=== PATIENT | female | born 1970 | race Caucasian/White ===

== ENCOUNTER → 2016-05-19 | Emergency (ER) | payer SELFPAY ==
[~2016-05-19] VITALS: Ht 147.3 cm; Wt 87.0 kg
[~2016-05-19] MED LIST: BENA5TAB2 PO; CYCL-319 PO; HYDR-906 PO; IBUP-1542 PO; METF500T4 PO
[2016-05-19 19:52] VITALS: Ht 147.3 cm; Wt 87.0 kg
--- NOTE | 2016-05-19 21:09 | ERD ---
ER Documentation Chief Complaint Date/Time DATE: 05/19/16 TIME: 21:08 Chief Complaint Bilateral flank pain x 3 days HPI 45-year-old female presents here in emergency department for complaints of bilateral flank pain for 3 days. Patient described the pain as sharp pain, 6/10 scale, is worse upon movement. Patient denies any nausea or vomiting. Patient denies any fever or chills. Patient denies hematuria or dysuria. Patient did not take any medications to help with symptoms. Patient denies any numbness or tingling in lower extremities. Patient denies any abdominal pain. ROS All systems reviewed and are negative except as per history of present illness. Medications Home Meds Reported Medications Metformin* (Glucophage*) Unknown Strength Tab, PO BID, #20 TAB 05/19/16 Benazepril Hcl* (Benazepril Hcl*) Unknown Strength Tablet, PO BID, #60 TAB 05/19/16 Allergies Allergies: Coded Allergies: No Known Allergy (Unverified , 05/19/16) PMhx/Soc History of Surgery: Yes (CHOLECYSTECTOMY) Anesthesia Reaction: No Hx Neurological Disorder: No Hx Respiratory Disorders: No Hx Cardiac Disorders: Yes (HTN) Hx Psychiatric Problems: No Hx Miscellaneous Medical Probl: Yes (DIABETES, RENAL INSUFFICIENCY) Hx Alcohol Use: No Hx Substance Use: No Hx Tobacco Use: No Smoking Status: Never smoker FmHx Family History: No coronary disease, No diabetes, No other Physical Exam Vitals Vital Signs Date Time Temp Pulse Resp B/P Pulse Ox O2 Delivery O2 Flow Rate FiO2 05/19/16 19:52 98.4 77 20 174/81 99 Physical Exam GENERAL: The patient is well developed and appropriate for usual state of health, in no apparent distress. CHEST: Clear to auscultation bilaterally. There are no rales, wheezes or rhonchi. HEART: Regular rate and rhythm. No murmurs, clicks, rubs or gallops. No S3 or S4. ABDOMEN: Soft, nontender and nondistended. Good bowel sounds. No rebound or guarding. No gross peritonitis. No gross organomegaly or masses. No Tomas sign or McBurney point tenderness. BACK: No midline or flank tenderness. Muscle spasms noted in the paraspinal aspect of the lumbar spine. EXTREMITIES: Equal pulses bilaterally. There is no peripheral clubbing, cyanosis or edema. No focal swelling or erythema. Full range of motion. Grossly neurovascularly intact. NEURO: Alert and oriented. Cranial nerves 2-12 intact. Motor strength in all 4 extremities with 5/5 strength. Sensation grossly intact. Normal speech and gait. SKIN: There is no apparent rash or petechia. The skin is warm and dry. HEMATOLOGIC AND LYMPHATIC: There is no evidence of excessive bruising or lymphedema. No gross cervical, axillary, or inguinal lymphadenopathy. Result Diagram: 05/19/16 2100 05/19/16 2100 Results 24 hrs Laboratory Tests Test 05/19/16 21:00 Alanine Aminotransferase (ALT/SGPT) 33IU/L Albumin 4.4g/dl Albumin/Globulin Ratio 1.37 Alkaline Phosphatase 64IU/L Anion Gap 17 Aspartate Amino Transf (AST/SGOT) 25IU/L Basophils # 0.010^3/ul Basophils % 0.3% Blood Urea Nitrogen 16mg/dl Calcium Level 9.4mg/dl Carbon Dioxide Level 30mmol/L Chloride Level 100mmol/L Creatinine 0.57mg/dl Direct Bilirubin 0.00mg/dl Eosinophils # 0.110^3/ul Eosinophils % 1.1% Globulin 3.20g/dl Glucose Level 208mg/dl Hematocrit 35.4% Hemoglobin 11.9g/dl Indirect Bilirubin 0.0mg/dl Lipase 64U/L Lymphocytes # 2.210^3/ul Lymphocytes % 21.7% Mean Corpuscular Hemoglobin 29.4pg Mean Corpuscular Hemoglobin Concent 33.6g/dl Mean Corpuscular Volume 87.4fl Mean Platelet Volume 10.6fl Monocytes # 0.510^3/ul Monocytes % 4.8% Neutrophils # 7.310^3/ul Neutrophils % 71.7% Nucleated Red Blood Cells # 0.010^3/ul Nucleated Red Blood Cells % 0.0/100WBC Platelet Count 16191^3/UL Potassium Level 3.5mmol/L Red Blood Count 4.0510^6/ul Red Cell Distribution Width 13.2% Sodium Level 143mmol/L Total Bilirubin 0.0mg/dl Total Protein 7.6g/dl Urine Bacteria FEW Urine Bilirubin NEGATIVE Urine Clarity CLEAR Urine Color LT. YELLOW Urine Epithelial Cells FEW Urine Glucose NEGATIVE% Urine Hemoglobin 3+ Urine Ketones NEGATIVE Urine Leukocyte Esterase NEGATIVE Urine Microscopic RBC 10-25/HPF Urine Microscopic WBC 0-2/HPF Urine Nitrite NEGATIVE Urine Specific [place] >=1.030 Urine Total Protein NEGATIVE Urine Urobilinogen 0.2 E.U./dL Urine pH 6.0 White Blood Count 10.210^3/ul PROCEDURE: CT Abdomen and pelvis without contrast. CLINICAL INDICATION: Abdominal pain. TECHNIQUE: CT scan of the abdomen and pelvis was performed on a multi- detector high-resolution CT scanner. Contiguous axial images were obtained from the lung bases to the ischial tuberosities without intravenous contrast. Coronal and sagittal reformatted images were also obtained. Images were reviewed on the PACS workstation. One or more of the following dose reduction techniques were used: - Automated exposure control. - Adjustment of the mA and/or kV according to patient size. - Use of iterative reconstruction technique. Exam CTD/vol = 15.79 mGy. Total exam DLP = 891.63 mGy-cm. COMPARISON: None. FINDINGS: Evaluation of the lung bases demonstrates minimal bibasilar atelectasis. There is a calcified granuloma within the left lower lobe. Abdomen: The liver is normal in size and diffusely low in attenuation consistent with fatty infiltration. There is no focal mass or dilatation of the biliary tree. The patient is status post cholecystectomy. The spleen, pancreas and bilateral adrenal glands are within normal limits. Bilateral kidneys are normal in size with no contour deforming mass identified. There is no radiopaque renal or ureteral calculus identified. There is no hydronephrosis or hydroureter. There is no retroperitoneal adenopathy. The abdominal aorta is of normal caliber. There is no abnormal bowel wall thickening or distension. There is no bowel obstruction or free air. A normal appendix is identified. There is no diverticulosis or diverticulitis. There is no ascites. Pelvis: The bladder is unremarkable. The uterus is unremarkable. There is a cystic structure within the left adnexa measuring 3.6 x 2.8 cm. There is no significant pelvic adenopathy or free fluid. Evaluation of the osseous structures demonstrates no suspicious lytic or blastic lesion. IMPRESSION: Fatty infiltration of the liver. Status post cholecystectomy. Left adnexal 3.6 cm cyst. Otherwise no acute abnormality identified within the abdomen and pelvis. .Cabrera Lozano, MD, MD Date Time Electronically viewed and signed by .Cabrera Lozano MD, MD on 05/20/2016 00:36 .T/ CC: ABILIO HOGAN NP Procedures/MDM Medical Decision Making: Patient's bilateral flank pain, lower back pain is nonspecific at this time, patient has +3 blood in the urine, may have passed a stone, nonspecific at this time, no symptoms of any pyelonephritis at this time. Can be also musculoskeletal pain, back strain. She also has an adnexal cyst may be also causing the pain. No suspicion of any ovarian torsion at this time. Patient's pain is controlled at this time. There is low suspicion for abdominal emergencies at this time. Patients abdominal exam is normal at this time. Patients radiology exam does not show any abdominal emergencies at this time. There is low suspicion for appendicitis, cholecystitis, abdominal aortic aneurysms or peritonitis at this time. There is low suspicion for sepsis. Patient appears well and is hemodynamically stable. Disposition: Home. Condition: Stable Prescription [place], Flexeril, ibuprofen Instructions: Patient is advised to take medications as prescribed. Patient is advised to rest, increase fluid intake and do avoid heavy lifting. Patient is advised that if symptoms are worse, severe abdominal pain, uncontrolled vomiting , high fever, severe flank pain, worst signs and symptoms, to return to the emergency department immediately. Otherwise, patient can follow up with primary care doctor in 5-7 days. Departure Diagnosis: Primary Impression: Back pain Back pain location: low back pain Chronicity: acute Back pain laterality: bilateral Sciatica presence: without sciatica Qualified Code: M54.5 - Acute bilateral low back pain without sciatica Additional Impressions: Hematuria Adnexal cyst Condition: Stable Patient Instructions: Back Pain (Acute Or Chronic), Hematuria, Ovarian Cyst Additional Instructions: Patient is advised to take medications as prescribed. Patient is advised to rest , increase fluid intake and do avoid heavy lifting. Patient is advised that if symptoms are worse, severe abdominal pain, uncontrolled vomiting, high fever, severe flank pain, worst signs and symptoms, to return to the emergency department immediately. Otherwise, patient can follow up with primary care doctor in 5-7 days. ABILIO HOGAN NP May 19, 2016 21:09
[2016-05-19 21:20] LABS: ADD SCAN DIFF NO
[2016-05-19 21:31] LABS: ADD UMIC YES; URINE BILIRUBIN (Dip) NEGATIVE (NEGATIVE); URINE BLOOD (Dip) 3+ (NEGATIVE); URINE COLOR LT. YELLOW (YELLOW); URINE GLUCOSE (Dip) NEGATIVE (NEGATIVE); URINE KETONES (Dip) NEGATIVE (NEGATIVE); URINE LEUKOCYTE ESTERASE (Dip) NEGATIVE (NEGATIVE); URINE NITRITE (Dip) NEGATIVE (NEGATIVE); URINE TOTAL PROTEIN (Dip) NEGATIVE (NEGATIVE); URINE UROBILINOGEN (Dip) 0.2 E.U./dL (0.1-1.0)
[2016-05-19 21:33] LABS: BASOPHILS % 0.3 % (0.0-2.0); EOSINOPHILS # 0.1 10^3/ul (0.0-0.5); EOSINOPHILS % 1.1 % (0.0-7.0); HEMATOCRIT 35.4 % (37.0-47.0); HEMOGLOBIN 11.9 g/dl (12.0-16.0); LYMPHOCYTES # 2.2 10^3/ul (0.8-2.9); LYMPHOCYTES % 21.7 % (15.0-51.0); MEAN CORPUSCULAR HEMOGLOBIN 29.4 pg (29.0-33.0); MEAN CORPUSCULAR HGB CONC 33.6 g/dl (32.0-37.0); MEAN CORPUSCULAR VOLUME 87.4 fl (82.0-101.0); MEAN PLATELET VOLUME 10.6 fl (7.4-10.4); MONOCYTE # 0.5 10^3/ul (0.3-0.9); MONOCYTES % 4.8 % (0.0-11.0); NEUTROPHIL # 7.3 10^3/ul (1.6-7.5); NEUTROPHILS % 71.7 % (39.0-77.0); PLATELET COUNT 316 10^3/UL (140-415); RED BLOOD COUNT 4.05 10^6/ul (4.20-5.40); RED CELL DISTRIBUTION WIDTH 13.2 % (11.5-14.5); WHITE BLOOD COUNT 10.2 10^3/ul (4.8-10.8)
[2016-05-19 21:41] LABS: ALBUMIN 4.4 g/dl (3.3-4.9); POTASSIUM 3.5 mmol/L (3.5-5.1)
[2016-05-19 21:44] LABS: ALBUMIN/GLOBULIN RATIO 1.37; CALCIUM 9.4 mg/dl (8.4-10.2); CREATININE 0.57 mg/dl (0.44-1.00); TOTAL PROTEIN 7.6 g/dl (6.1-8.1)
[2016-05-19 21:58] LABS: BACTERIA,URINE FEW
--- NOTE | 2016-05-20 00:36 | RADRPT ---
PROCEDURE: CT Abdomen and pelvis without contrast. CLINICAL INDICATION: Abdominal pain. TECHNIQUE: CT scan of the abdomen and pelvis was performed on a multi-detector high-resolution CT scanner. Contiguous axial images were obtained from the lung bases to the ischial tuberosities wit hout intravenous contrast. Coronal and sagittal reformatted images were also obtained. Images were reviewed on the PACS workstation. One or more of the following dose reduction techniques were used: - Automated exposure control. - Adjustment of the mA and/or kV according to patient size. - Use of iterative reconstruction technique. Exam CTD/vol = 15.79 mGy. Total exam DLP = 891.63 mGy-cm. COMPARISON: None. FINDINGS: Evaluation of the lung bases demonstrates minimal bibasilar atelectasis. There is a calcified granu cecy within the left lower lobe. Abdomen: The liver is normal in size and diffusely low in attenuation consistent with fatty infiltr ation. There is no focal mass or dilatation of the biliary tree. The patient is status post cholec ystectomy. The spleen, pancreas and bilateral adrenal glands are within normal limits. Bilateral k idneys are normal in size with no contour deforming mass identified. There is no radiopaque renal o r ureteral calculus identified. There is no hydronephrosis or hydroureter. There is no retroperito staci adenopathy. The abdominal aorta is of normal caliber. There is no abnormal bowel wall thickening or distension. There is no bowel obstruction or free air . A normal appendix is identified. There is no diverticulosis or diverticulitis. There is no asci ming. Pelvis: The bladder is unremarkable. The uterus is unremarkable. There is a cystic structure with in the left adnexa measuring 3.6 x 2.8 cm. There is no significant pelvic adenopathy or free fluid. Evaluation of the osseous structures demonstrates no suspicious lytic or blastic lesion. IMPRESSION: Fatty infiltration of the liver. Status post cholecystectomy. Left adnexal 3.6 cm cyst. Otherwise no acute abnormality identified within the abdomen and pelvis. .Cabrera Lozano MD, MD Date Time Electronically viewed and signed by .Cabrera Lozano MD, MD on 05/20/2016 00:36 .T/
[2016-05-20 00:59] VITALS: BP 194/93; PULSE 76; RESP 18; TEMP 97.1
== END | disposition home or self-care (01) ==
LOC: FTE 19:36
DX: M54.5 Low back pain (principal); R31.9 Hematuria, unspecified; N83.209 Unspecified ovarian cyst, unspecified side; I10 Essential (primary) hypertension; E11.9 Type 2 diabetes mellitus without complications; Z79.84 Long term (current) use of oral hypoglycemic drugs
CPT/HCPCS: 36415; 74176; 80053; 81001; 81003; 83690; 85025

== ENCOUNTER 2017-11-10 11:00 | Emergency (ER) | END 2017-11-10 12:41 | disposition home or self-care (01) ==

== ENCOUNTER 2018-12-02 22:11 | Emergency (ER) | payer OTHER ==
[~2018-12-02] VITALS: Ht 149.9 cm; Wt 78.8 kg
[~2018-12-02 22:11] MED LIST changes: -BENA5TAB2 PO; +BENA5TAB33 PO; -CYCL-319 PO; +CYCL10TA7 PO; +HYDR-4011 PO; -HYDR-906 PO; +IBUP800T48 PO; +METF-849 PO; -METF500T4 PO; +NAPR-985 PO; +TRAM50TA2 PO
[2018-12-02 22:25] VITALS: Ht 149.9 cm; Wt 78.8 kg
[2018-12-03 00:54] VITALS: BP 128/79; PULSE 87; RESP 18
[2018-12-03] MEDS ORDERED: IBUPROFEN 800 MG TAB PO ONE (01:00)
== END 2018-12-03 00:54 | disposition home or self-care (01) ==
LOC: E/R 22:11
DX: B34.9 Viral infection, unspecified (principal); I10 Essential (primary) hypertension; Z79.84 Long term (current) use of oral hypoglycemic drugs
CPT/HCPCS: Z7502; Z7610; 99282